=== PATIENT | female | born 1945 | race Caucasian/White ===

== ENCOUNTER 2020-05-13 19:26 | Inpatient (IN) ==
[2020-05-13] MEDS ORDERED: IOPAMIDOL 100 ML BOTTLE IV ONE (19:27)
[2020-05-13] MEDS ORDERED: ACETAMINOPHEN 325 MG TABLET PO ONE (19:50)
[2020-05-13] MEDS ORDERED: 0.9 % SODIUM CHLORIDE 1,000 ML IV ONE ×2 (19:50→22:35)
--- NOTE | 2020-05-13 20:10 | Emergency Department Note ---
Eye Problem HPI General Chief complaint: Eye Problems Stated complaint: eye Time Seen by Provider: 05/13/20 19:29 Source: patient Mode of arrival: ambulatory Limitations: no limitations History of Present Illness HPI Narrative: Narrative: 74-year-old female patient presents emergency department with chief complaint of worsening swelling, redness, and drainage from her left eye x2-3 days. Patient admits to a recent history of left eye infection. She was evaluated by an head of store operations and [place] who started her on antibiotics. I do not have that note to review. Nor does she recall what the antibiotic was. She mentions that her eyes been swollen shut over the last 2-3 days. She was evaluated in [facility] in [place] and was diagnosed with some form of URI 2 days ago (05/03). A review of the clinical note does not show any history of eye issues or problems. Physical exam does not show any eye exam being performed. She does have a pending COVID test. She tells me that she should have the results by tomorrow. Left eye is completely swollen shut but she is able to see light through the lids. It appears at this eye condition has markedly worsened within 2 days. Patient is anticoagulated on Coumadin. She is unsure what her last INR was. Patient is febrile in triage at 102. She admits to fever at home. She denies any cough, sinus congestion, runny nose. ROS: Denies shortness of breath. Denies retrosternal chest pain or palpitations. Denies abdominal pain, nausea, vomiting, or diarrhea. Denies dysuria, hematuria, urinary frequency, or urinary urgency. Denies generalized or focal weakness. Related Data Home Medications Medication Instructions Recorded Confirmed aspirin [Adult Low Dose Aspirin EC] 81 mg PO DAILY 11/27/16 11/27/16 carvedilol [Coreg] 3.125 mg PO BID 11/27/16 11/27/16 digoxin 125 mcg PO DAILY 11/27/16 11/27/16 furosemide 20 mg PO DAILY 11/27/16 11/27/16 lisinopril 5 mg PO DAILY 11/27/16 11/27/16 metformin [Fortamet] 500 mg PO BID 11/27/16 11/27/16 potassium chloride [Klor-Con 40 meq PO DAILY 11/27/16 11/27/16 Sprinkle] Entresto 24 - 26 mg PO BID 05/13/20 05/13/20 allopurinol 100 mg PO QDAY 05/13/20 05/13/20 glimepiride 2 mg PO QDAY 05/13/20 05/13/20 warfarin 7.5 mg PO QDAY 05/13/20 05/13/20 Previous Rx's Medication Instructions Recorded acetaminophen-codeine 1 tab PO Q6HP PRN #10 tab 11/27/16 Allergies Allergy/AdvReac Type Severity Reaction Status Date / Time rosuvastatin [From Crestor] AdvReac Intermediate Palpitation Verified 11/27/16 17:41 s atorvastatin [From Lipitor] AdvReac Unknown Unknown Verified 05/13/20 22:28 Review of Systems ROS ROS Narrative: Narrative: All systems ED: reviewed and negative except as stated. [facility] Narrative Patient History Narrative: Narrative: Medical/Surgical/Family History All Active Problems (Updated 05/13/20 @ 22:26 by Lorne Ch PA-C) Sepsis (Acute) Periorbital cellulitis (Acute) Current use of termite treater helper anticoagulation (Acute) Phlebitis (Acute) Phlebitis (Acute) Medical History (Updated 05/13/20 @ 22:26 by Lorne Ch PA-C) Current use of snf anticoagulation (Acute) Phlebitis (Acute) Phlebitis (Acute) Surgical History (Updated 05/13/20 @ 20:01 by Lorne Ch PA-C) Aortic valve replaced (Acute) Social History Smoking Status: Never smoker Exam Narrative Narrative: Narrative: General Limitations: no limitations General appearance: Present other (Well-developed, well-nourished, obese, and acutely ill-appearing 74-year-old female patient laying supine on the emergency room [place]. No acute respiratory distress. Patient is normotensive blood pressure 133/53. Heart rate is 84. Temperature is 102.0. SPO2 90% on room air.) Head Head: Absent normocephalic Expanded Head Head physical: Present other (Entire area around left eye is erythematous, and swollen shut.) Expanded Eye Eyelids: left: erythema and swelling eyelids (Left eye is completely swollen shut. There is serosanguineous drainage coming from underneath the eyelid. An attempt was made to open them slightly in order to visualize the pupil. Unfortunate this was unsuccessful. Area is tender to palpation.) Pupils: Right: regular, round (Unable to visualize left due to swelling.) and reactive (Unable to visualize left eye due to swelling.) Sclera/Conjunctival: left: hemorrhage (Left eye has serosanguineous drainage noted), exudate (There is some apparent purulent drainage also noted.) and tenderness and right: normal inspection Visual acuity (L) = 20/: 0 With correction: No ENT ENT: Present normal oropharynx and mucous membranes moist Neck Neck: Present trachea midline; Absent meningismus, lymphadenopathy and thyromegaly Chest Chest: Present symmetric chest wall rise Respiratory Respiratory: Present normal lung sounds bilaterally; Absent respiratory distress, wheezes, stridor, accessory muscle use and prolonged expiratory phase Cardiovascular Cardiovascular: Present regular rate and normal rhythm; Absent systolic murmur and diastolic murmur Adbominal Abdominal: Present soft; Absent distention, tenderness, guarding, rebound, rigidity, organomegaly and mass Extremities Extremities: Present normal inspection, full ROM and normal capillary refill Neurological Neurological: Present alert and oriented X3 Psychiatric Psychiatric: Present normal affect and normal mood Skin Skin: Present hot, dry and normal color Course Course Course Narrative: Patient does have a history of left eye infection. She has been treated recently with oral antibiotics by a head of store operations. However, patient has considerable periorbital cellulitis with a completely swollen shut upper and lower eyelid. This has both serosanguineous as well as purulent drainage noted. Patient is currently anticoagulated on Coumadin and there is some bruising noted to the upper eyelid. I am going to order a facial CT with contrast. I will also order screening laboratory studies including PT/INR. Reevaluation(s) Reevaluation #1: A review the patient's diagnostics thus far show the following: CBC WBC 23.5, RBC 3.53, hemoglobin 11.0, hematocrit 33.9, platelets 124. Lactic acid 2.0. Procalcitonin 13.09. CMP still pending. Results of the facial CT scan are also pending. Patient is febrile with an elevated WBC count. She does meet SIRS criteria. She has known suspected source of infection around her left eye and an elevated lactic acid level. This meets sepsis criteria. Patient was started on vancomycin 1500 mg IV in conjunction with Rocephin 2 g IV. It is now shift change and I have given full patient report to my collaborating physician (Dr. Squires) who has now assumed patient care. All further treatment decisions, modalities, and ultimate patient disposition will be carried out by my collaborating physician. Time: 22:24 Vital Signs Vital signs: Vital Signs Temperature 102.0 F H 05/13/20 19:26 Pulse Rate 84 05/13/20 19:26 Respiratory Rate 17 05/13/20 19:26 Blood Pressure 133/53 05/13/20 19:26 Pulse Oximetry (%) 90 05/13/20 19:26 Temperature 102.0 F H 05/13/20 19:26 Pulse Rate 84 05/13/20 19:26 Respiratory Rate 17 05/13/20 19:26 Blood Pressure 133/53 05/13/20 19:26 Pulse Oximetry (%) 90 05/13/20 19:26 MDM MDM Narrative Medical decision making narrative: Narrative: Discharge Plan Patient/Caregiver Discharge Instructions Pt seen by TOWER ERECTOR HELPER/PA only: No Clinical Impression: Sepsis Qualifiers: Sepsis type: sepsis due to unspecified organism Sepsis acute organ dysfunction status: without acute organ dysfunction Qualified Code(s): A41.9 - Sepsis, unspecified organism Periorbital cellulitis Qualifiers: Laterality: left Qualified Code(s): L03.213 - Periorbital cellulitis Patient Disposition: Still a Patient Condition: Serious Follow up with: Jameson Castanon PA-C [Primary Care Provider] - Prescriptions: No Action potassium chloride [Klor-Con Sprinkle] 10 MEQ Capsule.Er 40 meq PO DAILY RF: 0 aspirin [Adult Low Dose Aspirin] 81 MG tablet,delayed release (DR/EC) 81 mg PO DAILY RF: 0 carvedilol [Coreg] 3.125 MG tablet 25 mg PO BID RF: 0 lisinopril 5 MG Tablet 5 mg PO DAILY RF: 0 furosemide 20 MG tablet 40 mg PO Q2D RF: 0 metformin [Fortamet] 500 MG tablet extended release 24hr 1,000 mg PO BID RF: 0 digoxin 125 MCG tablet 125 mcg PO DAILY RF: 0 acetaminophen-codeine 1 TAB Tablet 1 tab PO Q6HP PRN (Reason: Pain) Qty: 10 RF: 0 warfarin 7.5 mg Tablet 7.5 mg PO QDAY RF: 0 allopurinol 100 mg tablet 100 mg PO QDAY RF: 0 glimepiride 2 mg tablet 2 mg PO QDAY RF: 0 Entresto 24 - 26 mg PO BID RF: 0
[2020-05-13] MEDS ORDERED: cefTRIAXone 2 GM in DEXTROSE 5% IN WATER 50 ML IV ONE (20:13)
[2020-05-13] MEDS ORDERED: VANCOMYCIN 1,500 MG in 0.9 % SODIUM CHLORIDE 500 ML IV ONE (20:13)
[2020-05-13 20:59] LABS: POC Creatinine 1.6 mg/dl (0.6-1.1)
[2020-05-13 21:18] LABS: Basophils # (Auto) 0.06 K/mcL (0.00-0.30); Basophils % (Auto) 0.3 % (0.0-2.0); Eosinophils # (Auto) 0.04 K/mcL (0.00-0.70); Eosinophils % (Auto) 0.2 % (0.0-7.0); Granulocytes % (Auto) 89.7 % (38.0-78.0); Hematocrit 33.9 % (34.1-44.9); Lymphocytes # (Auto) 0.97 K/mcL (1.50-4.80); Lymphocytes % (Auto) 4.1 % (15.5-49.0); Mean Corpuscular HGB Conc 32.4 g/dL (31.0-36.0); Mean Platelet Volume 10.9 fL (7.4-10.4); Monocytes # (Auto) 1.34 K/mcL (0.10-0.90); Monocytes % (Auto) 5.7 % (1.0-12.0); Platelet Count 124 K/mcL (140-440); RBC 3.53 M/mcL (3.59-5.38); Red Cell Distribution Width 13.7 % (11.5-14.5); WBC 23.5 K/mcL (4.50-11.00)
[2020-05-13 22:16] LABS: ALT/SGPT 9 U/l (0-40); AST/SGOT 13 U/l (0-37); Albumin 3.5 gm/dL (3.2-5.2); Albumin/Globulin Ratio 1.1 (1.0-2.3); Alkaline Phosphatase 66 U/L (39-117); Bilirubin,Total 0.9 mg/dL (0.0-1.0); Blood Urea Nitrogen 25 mg/dl (8-23); Calcium 8.9 mg/dl (8.6-10.4); Carbon Dioxide 24 mmol/L (22-30); Chloride 97 mmol/L (96-108); Globulin 3.3 gm/dL (2.2-3.7); Glomerular Filtration Rate 27; Glucose 246 mg/dL (70-105)
[2020-05-13 23:03] LABS: INR 3.1 (0.9-1.1); Prothrombin Time 32.5 sec (11.9-14.5)
--- NOTE | 2020-05-13 23:34 | Emergency Department Note ---
Eye Problem HPI General Chief complaint: Eye Problems Stated complaint: eye Time Seen by Provider: 05/13/20 19:29 Source: patient Mode of arrival: ambulatory Limitations: no limitations History of Present Illness HPI Narrative: Narrative: I took over care of this patient at 10 PM. She has a significant periorbital cellulitis with signs of early sepsis. Related Data Home Medications Medication Instructions Recorded Confirmed aspirin [Adult Low Dose Aspirin EC] 81 mg PO DAILY 11/27/16 05/13/20 carvedilol [Coreg] 25 mg PO BID 11/27/16 05/13/20 digoxin 125 mcg PO DAILY 11/27/16 05/13/20 furosemide 40 mg PO Q2D 11/27/16 05/13/20 metformin [Fortamet] 1,000 mg PO BID 11/27/16 05/13/20 Entresto 24 - 26 mg PO BID 05/13/20 05/13/20 allopurinol 100 mg PO QDAY 05/13/20 05/13/20 glimepiride 2 mg PO QDAY 05/13/20 05/13/20 warfarin 7.5 mg PO QDAY 05/13/20 05/13/20 Previous Rx's Medication Instructions Recorded acetaminophen-codeine 1 tab PO Q6HP PRN #10 tab 11/27/16 Allergies Allergy/AdvReac Type Severity Reaction Status Date / Time rosuvastatin [From Crestor] AdvReac Intermediate Palpitation Verified 11/27/16 17:41 s atorvastatin [From Lipitor] AdvReac Unknown Unknown Verified 05/13/20 22:28 Review of Systems ROS ROS Narrative: Narrative: [facility] Narrative Patient History Narrative: Narrative: Medical/Surgical/Family History All Active Problems Sepsis (Acute) Periorbital cellulitis (Acute) Current use of residential anticoagulation (Acute) Phlebitis (Acute) Phlebitis (Acute) Medical History Current use of extermination supervisor anticoagulation (Acute) Phlebitis (Acute) Phlebitis (Acute) Surgical History Aortic valve replaced (Acute) Social History Smoking Status: Never smoker Exam Narrative Narrative: Narrative: General Limitations: no limitations Expanded Eye Visual acuity (L) = 20/: 0 With correction: No Course Vital Signs Vital signs: Vital Signs Temperature 102.0 F H 05/13/20 19:26 Pulse Rate 84 05/13/20 19:26 Respiratory Rate 17 05/13/20 19:26 Blood Pressure 133/53 05/13/20 19:26 Pulse Oximetry (%) 90 05/13/20 19:26 Temperature 99.1 F H 05/14/20 05:31 Pulse Rate 78 05/14/20 06:08 Respiratory Rate 26 H 05/14/20 06:08 Blood Pressure 103/55 05/14/20 06:01 Pulse Oximetry (%) 94 05/14/20 06:08 MDM MDM Narrative Medical decision making narrative: Narrative: This patient's blood pressure trended down and so she did get fluid. Her lactic acid was 2.1 her white count was 23,000 and she had a fever. Blood cultures were obtained. I discussed the case with the hospitalist and the paint stock clerk Dr. Edvin Michael and the patient will be admitted to the hospital. She is gotten vancomycin and Rocephin so far. Dr. Michael felt that he could see the patient in the morning. Lab Data Lab results reviewed: Yes I reviewed the patient's lab results. Result diagrams: 05/14/20 04:55 05/13/20 20:14 Labs: Lab Results 05/13/20 05/13/20 05/13/20 Range/Units 20:13 20:14 20:14 WBC 23.5 H (4.50-11.00) K/mcL RBC 3.53 L (3.59-5.38) M/mcL Hgb 11.0 L (11.2-15.7) g/dL Hct 33.9 L (34.1-44.9) % MCV 96.0 (80.0-100.0) fL MCH 31.2 (26.0-34.0) pg MCHC 32.4 (31.0-36.0) g/dL RDW 13.7 (11.5-14.5) % Plt Count 124 L (140-440) K/mcL MPV 10.9 H (7.4-10.4) fL Gran % 89.7 H (38.0-78.0) % Lymph % (Auto) 4.1 L (15.5-49.0) % [place] % (Auto) 5.7 (1.0-12.0) % Eos % (Auto) 0.2 (0.0-7.0) % Baso % (Auto) 0.3 (0.0-2.0) % Gran # 21.09 H (1.80-8.00) K/mcL Lymph # (Auto) 0.97 L (1.50-4.80) K/mcL [place] # (Auto) 1.34 H (0.10-0.90) K/mcL Eos # (Auto) 0.04 (0.00-0.70) K/mcL Baso # (Auto) 0.06 (0.00-0.30) K/mcL PT (11.9-14.5) sec INR (0.9-1.1) VBG Lactic Acid (0.5-2.0) mmol/L Sodium 133 (133-145) mmol/L Potassium 4.4 (3.3-5.1) mmol/L Chloride 97 (96-108) mmol/L Carbon Dioxide 24 (22-30) mmol/L Anion Gap 12.0 (8-16) BUN 25 H (8-23) mg/dl Creatinine 1.8 H (0.6-1.1) mg/dl POC Creatinine 1.6 H (0.6-1.1) mg/dl GFR Calculation 27 Glucose 246 H (70-105) mg/dL Calcium 8.9 (8.6-10.4) mg/dl Total Bilirubin 0.9 (0.0-1.0) mg/dL AST 13 (0-37) U/l ALT 9 (0-40) U/l Alkaline Phosphatase 66 (39-117) U/L NT-Pro-B Natriuret Pep 67856.0 H (0-450) pg/ml Total Protein 6.8 (5.9-8.4) gm/dL Albumin 3.5 (3.2-5.2) gm/dL Globulin 3.3 (2.2-3.7) gm/dL Albumin/Globulin Ratio 1.1 (1.0-2.3) Procalcitonin (<0.10) ng/mL 09/30/20 09/30/20 09/30/20 Range/Units 20:14 20:14 20:31 WBC (4.50-11.00) K/mcL RBC (3.59-5.38) M/mcL Hgb (11.2-15.7) g/dL Hct (34.1-44.9) % MCV (80.0-100.0) fL MCH (26.0-34.0) pg MCHC (31.0-36.0) g/dL RDW (11.5-14.5) % Plt Count (140-440) K/mcL MPV (7.4-10.4) fL Gran % (38.0-78.0) % Lymph % (Auto) (15.5-49.0) % [place] % (Auto) (1.0-12.0) % Eos % (Auto) (0.0-7.0) % Baso % (Auto) (0.0-2.0) % Gran # (1.80-8.00) K/mcL Lymph # (Auto) (1.50-4.80) K/mcL [place] # (Auto) (0.10-0.90) K/mcL Eos # (Auto) (0.00-0.70) K/mcL Baso # (Auto) (0.00-0.30) K/mcL PT 32.5 H (11.9-14.5) sec INR 3.1 H (0.9-1.1) VBG Lactic Acid 2.1 H (0.5-2.0) mmol/L Sodium (133-145) mmol/L Potassium (3.3-5.1) mmol/L Chloride (96-108) mmol/L Carbon Dioxide (22-30) mmol/L Anion Gap (8-16) BUN (8-23) mg/dl Creatinine (0.6-1.1) mg/dl POC Creatinine (0.6-1.1) mg/dl GFR Calculation Glucose (70-105) mg/dL Calcium (8.6-10.4) mg/dl Total Bilirubin (0.0-1.0) mg/dL AST (0-37) U/l ALT (0-40) U/l Alkaline Phosphatase (39-117) U/L NT-Pro-B Natriuret Pep (0-450) pg/ml Total Protein (5.9-8.4) gm/dL Albumin (3.2-5.2) gm/dL Globulin (2.2-3.7) gm/dL Albumin/Globulin Ratio (1.0-2.3) Procalcitonin 13.09 H (<0.10) ng/mL Radiology Data Radiology results reviewed: Yes I reviewed the patient's radiology results. Radiology results narrative: Periorbital cellulitis without evidence of orbital abscess. Discharge Plan Patient/Caregiver Discharge Instructions Pt seen by RADIO ELECTRONICS TECHNICIAN/PA only: No Clinical Impression: Sepsis Qualifiers: Sepsis type: sepsis due to unspecified organism Sepsis acute organ dysfunction status: without acute organ dysfunction Qualified Code(s): A41.9 - Sepsis, unspecified organism Periorbital cellulitis Qualifiers: Laterality: left Qualified Code(s): L03.213 - Periorbital cellulitis Patient Disposition: Xfer As Inpt ([facility]) Condition: Serious Discharge Date/Time: 05/14/20 00:41
[2020-05-14] MEDS ORDERED: ACETAMINOPHEN 325 MG TABLET PO PRN ×2 (00:08→00:54)
[2020-05-14] MEDS ORDERED: morphine 2 MG/ML VIAL IV PRN ×2 (00:08→00:54)
[2020-05-14] MEDS ORDERED: ONDANSETRON 4 MG/2 ML VIAL IV PRN ×2 (00:08→00:54)
[2020-05-14] MEDS ORDERED: 0.9 % SODIUM CHLORIDE 1,000 ML IV SCH (00:15)
[2020-05-14] MEDS ORDERED: PIPERACILLIN SODIUM/TAZOBACTAM 2.25 GM in DEXTROSE 5% IN WATER 50 ML IV SCH (00:15)
[2020-05-14] MEDS ORDERED: DEXTROSE 50% 50 ML VIAL IV PRN ×2 (00:20→00:54)
[2020-05-14] MEDS ORDERED: DEXTROSE 31 GM ORAL.SUSP PO PRN ×2 (00:20→00:54)
[2020-05-14] MEDS ORDERED: traMADol 50 MG TABLET PO PRN ×2 (00:20→00:54)
[2020-05-14] MEDS ORDERED: VANCOMYCIN PER PHARMACY IV ONE ×2 (00:20→00:54)
[2020-05-14] MEDS ORDERED: CIPROFLOXACIN 0.3% OPHTH DROPS BOTTLE OS SCH ×2 (00:30→06:00)
--- NOTE | 2020-05-14 00:51 | Internal Med History&Physical ---
HPI History of Present Illness Patient information: Note initiated : 05/14/20 at 12:27 am Service Date, if different from initiated Date: [] Patient: Latoya Katz a 74 y/o F admitted on for eye. Chief Complaint: [] History of present illness: Ms. Katz is a 74 year old F with a past medical history of diabetes type 2 and mitral valve replacement with metallic valve on long-term anticoagulation who presented to the ER due to left eye swelling and redness for 2 days. Patient states that her left eye started redness, swelling and pain 2 days ago which has been worsening. She denied any injury to left eye. She was seen by an emotional support teacher in [place] who started her on antibiotics. He also complains of sore throat for 2 days. She had a COVID-19 test, the results pending. She had a metallic mitral valve replacement for which she has been on long-term anticoagulation with warfarin. As per ER physician Dr. Pike, CT of face with contrast did not show abscess. 1 dose of ceftriaxone and vancomycin were given in the ER. When I saw this patient in the ER, other than the symptoms mentioned above, patient denied headache, dizziness, nausea, vomiting, chest pain, shortness of breath, abdominal pain, or dysuria. I was called by Dr. pike to admit the pt. Both dry house wheeler and I were concerned about her left eye. There is no emotional support teacher equipment installation professional available [facility]. Before I accepted the pt, I suggested Dr. Pike to consult with emotional support teacher to see if pt needs to be emergently seen tonight. If so, we can not admit the pt to our hospital. As per Dr. Pike, he spoke to ophthalmology Dr. Michael who will see pt tomorrow. So I accepted the pt. Review of Systems All systems: reviewed and no additional remarkable complaints except as stated PFSH PFSH All Active Problems Sepsis (Acute) Periorbital cellulitis (Acute) Current use of parts counterman anticoagulation (Acute) Phlebitis (Acute) Phlebitis (Acute) Medical History Current use of parts counterman anticoagulation (Acute) Phlebitis (Acute) Phlebitis (Acute) Surgical History Aortic valve replaced (Acute) Social History smoking status: Never smoker MEDS/ALLERGIES Home Medications and Allergies Home Medications Medication Instructions Recorded Confirmed Type acetaminophen-codeine 1 tab PO Q6HP PRN #10 tab 11/27/16 05/13/20 Rx aspirin [Adult Low Dose Aspirin EC] 81 mg PO DAILY 11/27/16 05/13/20 History carvedilol [Coreg] 25 mg PO BID 11/27/16 05/13/20 History digoxin 125 mcg PO DAILY 11/27/16 05/13/20 History furosemide 40 mg PO Q2D 11/27/16 05/13/20 History metformin [Fortamet] 1,000 mg PO BID 11/27/16 05/13/20 History Entresto 24 - 26 mg PO BID 05/13/20 05/13/20 History allopurinol 100 mg PO QDAY 05/13/20 05/13/20 History glimepiride 2 mg PO QDAY 05/13/20 05/13/20 History warfarin 7.5 mg PO QDAY 05/13/20 05/13/20 History Allergies Allergy/AdvReac Type Severity Reaction Status Date / Time rosuvastatin [From Crestor] AdvReac Intermediate Palpitation Verified 11/27/16 17:41 s atorvastatin [From Lipitor] AdvReac Unknown Unknown Verified 05/13/20 22:28 EXAM Constitutional Vitals: Temp Pulse Resp BP Pulse Ox 100.6 F H 87 20 116/62 95 05/13/20 23:21 05/13/20 23:57 05/13/20 23:25 05/14/20 00:01 05/13/20 23:57 Additional findings Additional findings: General - No acute distress Eyes - left eyelids erythema and swelling, completely swollen shut. There is purulent serosanguineous drainage coming from underneath the eyelid. Left eye ball can not be seen due to pain when I tried to open the eyelids. ENT no rhinorrhea, no noticeable or palpable swelling, no redness or rash around throat or on face Neck supple, no JVD, no thyromegaly Respiratory: Lungs -clear, no wheezing or crackles. Cardiovascular - RRR no m/r/g, GI - Normal bowel sounds, no distended, soft. Extremeties - No edema, cyanosis or clubbing Hemo/lymphatic/immune no lymphadenopathy Neurological Alert and oriented x 3, no focal neurological deficits. Psychiatry flat affect DATA Data Completed and Pending Labs: Labs from last 24 hours 05/13/20 05/13/20 05/13/20 20:31 20:14 20:14 WBC RBC Hgb Hct MCV MCH MCHC RDW Plt Count MPV Gran % Lymph % (Auto) [place] % (Auto) Eos % (Auto) Baso % (Auto) Gran # Lymph # (Auto) [place] # (Auto) Eos # (Auto) Baso # (Auto) PT 32.5 H INR 3.1 H VBG Lactic Acid 2.1 H Sodium Potassium Chloride Carbon Dioxide Anion Gap BUN Creatinine POC Creatinine GFR Calculation Glucose Calcium Total Bilirubin AST ALT Alkaline Phosphatase NT-Pro-B Natriuret Pep Total Protein Albumin Globulin Albumin/Globulin Ratio Procalcitonin 13.09 H 05/13/20 05/13/20 05/13/20 20:14 20:14 20:13 WBC 23.5 H RBC 3.53 L Hgb 11.0 L Hct 33.9 L MCV 96.0 MCH 31.2 MCHC 32.4 RDW 13.7 Plt Count 124 L MPV 10.9 H Gran % 89.7 H Lymph % (Auto) 4.1 L [place] % (Auto) 5.7 Eos % (Auto) 0.2 Baso % (Auto) 0.3 Gran # 21.09 H Lymph # (Auto) 0.97 L [place] # (Auto) 1.34 H Eos # (Auto) 0.04 Baso # (Auto) 0.06 PT INR VBG Lactic Acid Sodium 133 Potassium 4.4 Chloride 97 Carbon Dioxide 24 Anion Gap 12.0 BUN 25 H Creatinine 1.8 H POC Creatinine 1.6 H GFR Calculation 27 Glucose 246 H Calcium 8.9 Total Bilirubin 0.9 AST 13 ALT 9 Alkaline Phosphatase 66 NT-Pro-B Natriuret Pep Pending Total Protein 6.8 Albumin 3.5 Globulin 3.3 Albumin/Globulin Ratio 1.1 Procalcitonin A/P Narrative A/P Narrative: 1. Sepsis 2nd to periorbital cellulitis Lactic acid 2.1 Procalcitonin 13.09 2 L normal saline was given in the ER Continue IV fluid Carvedilol 25 mg twice daily, entresto 24-26 BID, and lasix 40mg Q2D are on hold due to BP 110+. 2. Acute periorbital cellulitis As per ER physician Dr. Pike, CT of face - no abscess. No headache or neurological deficits MRSA screen Covid 19 pending Zosyn and vancomycin (dosing by pharmacy) Cipro eyedrops Job Analyst Dr. Michael consult 3. Mitral valve replacement with metalic valve on parts counterman anticoagulation Continue warfarin, dosing by pharmacy 4. DM type 2 Diabetic diet Glimepiride 2 mg daily and Metformin are on hold Insulin sliding scales 5. Thrombocytopenia Repeat CBC in morning 6. ENEDINA or CKD Unknown chronicity IV fluid Avoid nephrotoxic meds Repeat renal function in morning 7. DVT prophylaxis: Warfarin 8. CODE STATUS: Patient has not made a decision yet. Time Spent With Patient Time: Total time spent is greater than 50% in coordination of care (as documented) at patient's floor/unit and/or counseling patient:
[2020-05-14] MEDS ORDERED: IOPAMIDOL 100 ML BOTTLE IV ONE (00:54)
[2020-05-14] MEDS: 0.9 % SODIUM CHLORIDE 1,000 ML IV SCH ×3 (01:18→12:57)
[2020-05-14] MEDS: PIPERACILLIN SODIUM/TAZOBACTAM 2.25 GM in DEXTROSE 5% IN WATER 50 ML IV SCH ×3 (01:19→14:01)
--- NOTE | 2020-05-14 01:39 | XRay Report ---
CLINICAL INFORMATION: SOB COMPARISON: None. FINDINGS: The heart is moderately enlarged. Mediastinum is unremarkable. Pulmonary vessels are mildly distended is mild peribronchial vascular edema. Minor airspace disease in the right base could indicate developing infiltrate. There is a wire fragment overlying the central heart. Tach location is uncertain given is only single view. IMPRESSION: Mild CHF. Developing infiltrate right base. 4 cm attached wire fragment overlying the central heart. Suspect this is merely a fractured sternotomy wire. Suggest two-view upright chest x-ray, following diuretic trial, for localization Interpreted and Authenticated by: Cliff Liu 05/14/20
--- NOTE | 2020-05-14 03:18 | Cat Scan Report ---
CLINICAL INFORMATION: Left orbital cellulitis - evaluate COMPARISON: None. TECHNIQUE: 80 cc of Isovue-370 were injected intravenously and one minute later, 0.625 mm axial slices were obtained through the facial region. Following reconstruction, 2.5 millimeter, axial, sagittal and coronal reformations were obtained and reviewed in bone and soft tissue windows.The exam was performed using radiation dose optimization techniques including, but not limited to, automated exposure control, adjustment of the mA and/or kV according to patient size and use of iterative reconstruction technique. FINDINGS: Marked left orbital cellulitis is entirely confined to the preseptal space. There is no evidence of post septal involvement. The left ocular globe, intra and extraconal fat, extraocular muscles and optic nerve are all unremarkable. The right orbit is entirely unremarkable. There is moderate mucosal thickening in all ethmoid and right sphenoid air cells. Small air-fluid level seen in the left maxillary sinus. Right maxillary and frontal sinuses are clear. There is heavy calcification in the alar cartilage region - likely stigmata of old trauma or inflammation. Dentures are in place with moderate alveolar erosions in both maxillary and mandibular regions. No other osseous abnormality. Multiple moderately enlarged upper deep cervical lymph nodes are almost certainly benign reactive lymph nodes. The submandibular and parotid glands are unremarkable. At C5-6 and C6-7, moderate broad disc spur complexes result in moderate central canal and bilateral lateral recess/ IV foraminal narrowing. There is possible impingement of the exiting C6-C7 nerve roots. IMPRESSION: 1. Marked left orbital cellulitis entirely confined to the preseptal space. 2. Bilateral ethmoid, right sphenoid and left maxillary sinusitis. 3. Heavy calcification of the alar cartilages in the nasal region. This is likely stigmata of remote trauma or inflammation. 4. Enlarged upper deep cervical lymph nodes almost certainly benign reactive adenopathy related to cellulitis. 5. C5-6 and C6-7: moderate broad disc spur complexes resulting in moderate central canal and IV foraminal narrowing possibly impinging exiting C6-C7 nerve roots - please correlate with upper extremity radiculopathy. Interpreted and Authenticated by: Cliff Liu 05/14/20
[2020-05-14] MEDS: 0.9 % SODIUM CHLORIDE 10 ML SYRINGE IV SCH ×2 (05:33→14:01)
[2020-05-14] MEDS ORDERED: 0.9 % SODIUM CHLORIDE 10 ML SYRINGE IV SCH (06:00)
[2020-05-14] MEDS ORDERED: VANCOMYCIN PER PHARMACY IV SCH (06:15)
[2020-05-14 06:45] LABS: Basophils # (Auto) 0.04 K/mcL (0.00-0.30); Basophils % (Auto) 0.2 % (0.0-2.0); Eosinophils # (Auto) 0.02 K/mcL (0.00-0.70); Eosinophils % (Auto) 0.1 % (0.0-7.0); Granulocytes % (Auto) 89.1 % (38.0-78.0); Hematocrit 31.8 % (34.1-44.9); Lymphocytes % (Auto) 4.5 % (15.5-49.0); Mean Cell Volume 101.3 fL (80.0-100.0); Mean Corpuscular HGB Conc 31.4 g/dL (31.0-36.0); Mean Platelet Volume 11.1 fL (7.4-10.4); Monocytes # (Auto) 1.08 K/mcL (0.10-0.90); Monocytes % (Auto) 6.1 % (1.0-12.0); Platelet Count 101 K/mcL (140-440); RBC 3.14 M/mcL (3.59-5.38); Red Cell Distribution Width 13.7 % (11.5-14.5); WBC 17.8 K/mcL (4.50-11.00)
[2020-05-14 07:06] LABS: ALT/SGPT 8 U/l (0-40); AST/SGOT 17 U/l (0-37); Albumin 2.6 gm/dL (3.2-5.2); Albumin/Globulin Ratio 0.8 (1.0-2.3); Alkaline Phosphatase 70 U/L (39-117); Bilirubin,Total 0.5 mg/dL (0.0-1.0); Blood Urea Nitrogen 30 mg/dl (8-23); Calcium 8.1 mg/dl (8.6-10.4); Carbon Dioxide 18 mmol/L (22-30); Chloride 106 mmol/L (96-108); Globulin 3.3 gm/dL (2.2-3.7); Glomerular Filtration Rate 31; Glucose 155 mg/dL (70-105)
[2020-05-14 07:26] LABS: INR 4.4 (0.9-1.1); Prothrombin Time 42.6 sec (11.9-14.5)
[2020-05-14] MEDS ORDERED: INSULIN LISPRO 1 UNIT/0.01 ML UNIT SQ SCH (07:30)
[2020-05-14 07:36] LABS: Digoxin 0.6 ng/mL
[2020-05-14] MEDS: INSULIN LISPRO 1 UNIT/0.01 ML UNIT SQ SCH ×2 (07:53→12:59)
[2020-05-14 08:27] LABS: Estimated Average Glucose(eAG) 146 mg/dL; Hemoglobin A1C 6.7 % HGB (4.0-6.0)
[2020-05-14] MEDS ORDERED: NON FORMULARY MEDICATION 1 DOSE MISCELL (Aspirin [Adult Low Dose Aspirin] 81 MG) PO SCH (09:00)
[2020-05-14] MEDS ORDERED: ASPIRIN 81 MG TAB.CHEW PO SCH (09:00)
[2020-05-14] MEDS ORDERED: DIGOXIN 125 MCG TABLET PO SCH ×2 (09:00→14:00)
[2020-05-14] MEDS ORDERED: VANCOMYCIN 1,500 MG in 0.9 % SODIUM CHLORIDE 500 ML IV SCH (09:00)
[2020-05-14] MEDS ORDERED: DOCUSATE SODIUM 100 MG CAPSULE PO SCH ×2 (09:00)
[2020-05-14] MEDS ORDERED: WARFARIN 7.5 MG TABLET PO SCH ×2 (09:00)
[2020-05-14 13:28] LABS: Phosphorous 2.8 mg/dL (2.7-4.5)
--- NOTE | 2020-05-14 15:18 | Discharge Summary ---
Discharge Provider Provider Patient information: Note initiated : 05/14/20 at 3:16 pm Service Date, if different from initiated Date: [] Patient: Latoya Katz 74 y/o F admitted on 05/14/20 for eye. Chief Complaint: [] Date of admission: 05/14/20 00:37 Discharge date: 05/14/20 Primary care physician: Jameson Castanon Consults: 05/13/20 23:19 Consult to Physician [CONS] Stat Comment: Consulting Provider: Nelson Rosales Reason For Exam: Physician to Consult 05/13/20 23:35 Consult to Physician [CONS] Stat Comment: Consulting Provider: Edvin Michael Reason For Exam: Physician to Consult 05/14/20 Consult to Physician [CONS] Stat Comment: Consulting Provider: Edvin Michael Reason For Exam: Physician to Consult Discharge Meds Discharge Medications Home Medications acetaminophen-codeine 1 tab PO Q6HP PRN #10 tab 11/27/16 [Rx Confirmed 05/13/20 Last Taken Unknown] aspirin [Adult Low Dose Aspirin EC] 81 mg PO DAILY 11/27/16 [History Confirmed 05/13/20 Last Taken Unknown] carvedilol [Coreg] 25 mg PO BID 11/27/16 [History Confirmed 05/13/20 Last Taken Unknown] digoxin 125 mcg PO DAILY 11/27/16 [History Confirmed 05/13/20 Last Taken Unknown] furosemide 40 mg PO Q2D 11/27/16 [History Confirmed 05/13/20 Last Taken Unknown] metformin [Fortamet] 1,000 mg PO BID 11/27/16 [History Confirmed 05/13/20 Last Taken Unknown] Entresto 24 - 26 mg PO BID 05/13/20 [History Confirmed 05/13/20 Last Taken Un known] allopurinol 100 mg PO QDAY 05/13/20 [History Confirmed 05/13/20 Last Taken Unknown] glimepiride 2 mg PO QDAY 05/13/20 [History Confirmed 05/13/20 Last Taken Unknown] warfarin 7.5 mg PO QDAY 05/13/20 [History Confirmed 05/13/20 Last Taken Unknown] COURSE Hospital Course Hospital course: By problems: 1. Sepsis 2nd to periorbital cellulitis resolved. Carvedilol 25 mg twice daily, entresto 24-26 BID, and lasix 40mg Q2D are on hold due to BP 110+. SBP is now around 120-130 2. Acute periorbital cellulitis CT of face - "Marked left orbital cellulitis entirely confined to the preseptal space. Bilateral ethmoid, right sphenoid and left maxillary sinusitis." No headache or neurological deficits MRSA screen -negative Covid 19 negative Respiratory panel negative Zosyn and vancomycin (dosing by pharmacy) Cipro eyedrops [employer] Dr. Augustin saw pt this morning, who felt her periorbital cellulitis could result from sinusitis. Her eyeballs are fine. Vanco and Zosyn are good for her. She does not need eyedrops. Blood culture came back showed -gram-positive cocci - COCCI IN PAIRS AND CHAINS BOTH BOTTLES. I discontinued vanc. 3. Mitral valve replacement with metalic valve on lobsterman anticoagulation Continue warfarin, dosing by pharmacy 4. DM type 2 Diabetic diet Glimepiride 2 mg daily and Metformin are on hold Insulin sliding scales 5. Thrombocytopenia Repeat CBC in morning 6. ENEDINA or CKD Unknown chronicity IV fluid Avoid nephrotoxic meds Repeat renal function in morning 7. Supratherapeutic INR INR 4.4 today No evidence of bleeding. Warfarin is on hold 8. Bacteremia - [facility] Echo was performed, report pending Repeat blood culture abx was adjusted 9. Cardiac arrhythmia This morning patient developed atrial flutter, LBBB, pause for 8 seconds. LBBB possibly showed on the EKG on 03/25/2019 troponin Mag 10. Systolic CHF BNP 73550 Nuclear stress test was performed April 2019 at [facility], EF - 34%. Did not suggest ischemia. Considering this factors - CHF with EF almost 30%, symptomatic pause, metallic valve with bacteremia, I spoke to rn mobile Dr. Joiner at [facility] who felt that pt needs to be transferred to his hospital for further work-up and treatment. I spoke to hospitalist at [facility] who accepted this patient. I discussed with the patient who agreed with the plan but refused helicopter. She would like to be transferred by ground. Discharge diagnosis: Periorbital cellulitis, cardiac arrhythmia, bacteremia Time Spent with Patient Time attestation: Total time spent providing and/or coordinating discharge services: EXAM Constitutional Vitals: Temp Pulse Resp BP Pulse Ox 100.4 F H 66 25 H 130/60 95 05/14/20 12:01 05/14/20 13:23 05/14/20 13:23 05/14/20 12:37 05/14/20 13:23 Additional findings Additional findings: General - No acute distress Eyes - left eyelids erythema and swelling, completely swollen shut. There is purulent serosanguineous drainage coming from underneath the eyelid. Left eye ball can not be seen due to pain when I tried to open the eyelids. mild erythema and swelling over cheeks and left eyelids. ENT no rhinorrhea Neck supple, no JVD, no thyromegaly Respiratory: Lungs -clear, no wheezing or crackles. Cardiovascular - RRR no m/r/g, GI - Normal bowel sounds, no distended, soft. Extremeties - No edema, cyanosis or clubbing Hemo/lymphatic/immune no lymphadenopathy Neurological Alert and oriented x 3, no focal neurological deficits. Psychiatry flat affect Discharge Data Data Completed and Pending Labs on day of discharge: Labs from last 24 hours 05/14/20 05/14/20 05/14/20 13:13 06:30 04:55 WBC RBC Hgb Hct MCV MCH MCHC RDW Plt Count MPV Gran % Lymph % (Auto) Geary % (Auto) Eos % (Auto) Baso % (Auto) Gran # Lymph # (Auto) Geary # (Auto) Eos # (Auto) Baso # (Auto) Differential Comment PT 42.6 H INR 4.4 H VBG Lactic Acid Sodium Potassium Chloride Carbon Dioxide Anion Gap BUN Creatinine POC Creatinine GFR Calculation Glucose Hemoglobin A1c Estim Average Glucose Calcium Phosphorus 2.8 Magnesium 2.4 Total Bilirubin AST ALT Alkaline Phosphatase Troponin T < 0.01 NT-Pro-B Natriuret Pep Total Protein Albumin Globulin Albumin/Globulin Ratio Procalcitonin Digoxin Digoxin Dose Digox Last Dose Time 05/14/20 05/14/20 05/14/20 04:55 04:55 04:55 WBC 17.8 H RBC 3.14 L Hgb 10.0 L Hct 31.8 L MCV 101.3 H MCH 31.8 MCHC 31.4 RDW 13.7 Plt Count 101 L MPV 11.1 H Gran % 89.1 H Lymph % (Auto) 4.5 L Geary % (Auto) 6.1 Eos % (Auto) 0.1 Baso % (Auto) 0.2 Gran # 15.89 H Lymph # (Auto) 0.80 L Geary # (Auto) 1.08 H Eos # (Auto) 0.02 Baso # (Auto) 0.04 Differential Comment Comment PT INR VBG Lactic Acid Sodium 134 Potassium 4.9 Chloride 106 Carbon Dioxide 18 L Anion Gap 10.0 BUN 30 H Creatinine 1.6 H POC Creatinine GFR Calculation 31 Glucose 155 H Hemoglobin A1c 6.7 H Estim Average Glucose 146 Calcium 8.1 L Phosphorus Magnesium Total Bilirubin 0.5 AST 17 ALT 8 Alkaline Phosphatase 70 Troponin T NT-Pro-B Natriuret Pep Total Protein 5.9 Albumin 2.6 L Globulin 3.3 Albumin/Globulin Ratio 0.8 L Procalcitonin Digoxin 0.6 Digoxin Dose Not Reportable Digox Last Dose Time Not Reportable 05/13/20 05/13/20 05/13/20 20:31 20:14 20:14 WBC RBC Hgb Hct MCV MCH MCHC RDW Plt Count MPV Gran % Lymph % (Auto) Geary % (Auto) Eos % (Auto) Baso % (Auto) Gran # Lymph # (Auto) Geary # (Auto) Eos # (Auto) Baso # (Auto) Differential Comment PT 32.5 H INR 3.1 H VBG Lactic Acid 2.1 H Sodium Potassium Chloride Carbon Dioxide Anion Gap BUN Creatinine POC Creatinine GFR Calculation Glucose Hemoglobin A1c Estim Average Glucose Calcium Phosphorus Magnesium Total Bilirubin AST ALT Alkaline Phosphatase Troponin T NT-Pro-B Natriuret Pep Total Protein Albumin Globulin Albumin/Globulin Ratio Procalcitonin 13.09 H Digoxin Digoxin Dose Digox Last Dose Time 05/13/20 05/13/20 05/13/20 20:14 20:14 20:13 WBC 23.5 H RBC 3.53 L Hgb 11.0 L Hct 33.9 L MCV 96.0 MCH 31.2 MCHC 32.4 RDW 13.7 Plt Count 124 L MPV 10.9 H Gran % 89.7 H Lymph % (Auto) 4.1 L Geary % (Auto) 5.7 Eos % (Auto) 0.2 Baso % (Auto) 0.3 Gran # 21.09 H Lymph # (Auto) 0.97 L Geary # (Auto) 1.34 H Eos # (Auto) 0.04 Baso # (Auto) 0.06 Differential Comment PT INR VBG Lactic Acid Sodium 133 Potassium 4.4 Chloride 97 Carbon Dioxide 24 Anion Gap 12.0 BUN 25 H Creatinine 1.8 H POC Creatinine 1.6 H GFR Calculation 27 Glucose 246 H Hemoglobin A1c Estim Average Glucose Calcium 8.9 Phosphorus Magnesium Total Bilirubin 0.9 AST 13 ALT 9 Alkaline Phosphatase 66 Troponin T NT-Pro-B Natriuret Pep 74468.0 H Total Protein 6.8 Albumin 3.5 Globulin 3.3 Albumin/Globulin Ratio 1.1 Procalcitonin Digoxin Digoxin Dose Digox Last Dose Time Preliminary micro results at discharge 05/13/20 20:45 Blood Culture - Preliminary Blood Gram positive cocci 05/13/20 20:44 Blood Culture - Preliminary Blood Gram positive cocci Discharge Plan Patient/Caregiver Discharge Instructions Stand Alone Forms: Work/Release Restrictions Prescriptions: No Action aspirin [Adult Low Dose Aspirin] 81 MG tablet,delayed release (DR/EC) 81 mg PO DAILY RF: 0 carvedilol [Coreg] 3.125 MG tablet 25 mg PO BID RF: 0 furosemide 20 MG tablet 40 mg PO Q2D RF: 0 metformin [Fortamet] 500 MG tablet extended release 24hr 1,000 mg PO BID RF: 0 digoxin 125 MCG tablet 125 mcg PO DAILY RF: 0 acetaminophen-codeine 1 TAB tablet 1 tab PO Q6HP PRN (Reason: Pain) Qty: 10 RF: 0 warfarin 7.5 mg Tablet 7.5 mg PO QDAY RF: 0 allopurinol 100 mg tablet 100 mg PO QDAY RF: 0 glimepiride 2 mg tablet 2 mg PO QDAY RF: 0 Entresto 24 - 26 mg PO BID RF: 0 Follow Up Plan Follow up with: Jameson Castanon PA-C [Primary Care Provider] - Corky Murrieta [Referring] - [facility]: Serious Discharge Orders: Discharge Order (Routine); Ordered 05/14/20 Ordered By: Nelson Rosales
== END 2020-05-14 16:45 | disposition short-term general hospital (02) | DRG 872 ==
LOC: ED 19:26 → ICU 05-14 00:37
PROVIDERS: ADMIT Internal Medicine; ATTEND Internal Medicine

== ENCOUNTER 2024-01-13 23:41 | Inpatient (IN) ==
[2024-01-14 00:12] LABS: Basophils # (Auto) 0.02 K/mcL (0.00-0.30); Basophils % (Auto) 0.3 % (0.0-2.0); Eosinophils # (Auto) 0.14 K/mcL (0.00-0.70); Hematocrit 37.4 % (34.1-44.9); Hemoglobin 11.8 g/dL (11.2-15.7); Lymphocytes # (Auto) 1.06 K/mcL (1.50-4.80); Lymphocytes % (Auto) 15.3 % (15.5-49.0); Mean Cell Volume 96.1 fL (80.0-100.0); Mean Corpuscular HGB Conc 31.6 g/dL (31.0-36.0); Mean Platelet Volume 10.4 fL (8.8-12.5); Monocytes # (Auto) 0.51 K/mcL (0.10-0.90); Monocytes % (Auto) 7.4 % (1.0-12.0); Neutrophils % (Auto) 74.9 % (38.0-78.0); Platelet Count 188 K/mcL (140-440); RBC 3.89 M/mcL (3.59-5.38); Red Cell Distribution Width 14.8 % (11.5-14.5); WBC 6.9 K/mcL (4.5-11.0)
[2024-01-14 00:31] LABS: ALT/SGPT < 5 U/L (<40); AST/SGOT 13 U/L (<32); Albumin 3.6 gm/dL (3.2-5.2); Albumin/Globulin Ratio 1.1 (1.0-2.3); Alkaline Phosphatase 82 U/L (39-117); Bilirubin,Total 0.9 mg/dL (0.1-1.0); Blood Urea Nitrogen 21 mg/dL (8-23); Calcium 9.1 mg/dL (8.6-10.4); Carbon Dioxide 22 mmol/L (22-30); Chloride 106 mmol/L (96-108); Globulin 3.4 gm/dL (2.2-3.7); Glomerular Filtration Rate 60; Glucose 177 mg/dL (70-105)
[2024-01-14 00:36] LABS: INR 2.7 (0.9-1.1); Prothrombin Time 30.3 sec (11.9-14.5)
[2024-01-14] MEDS: FUROSEMIDE 40 MG/4 ML VIAL IV ONE (00:53)
[2024-01-14] MEDS: ASPIRIN 81 MG TAB.CHEW CHEWED ONE (01:12)
[2024-01-14] MEDS ORDERED: ONDANSETRON 4 MG/2 ML VIAL IV PRN (07:59)
[2024-01-14] MEDS ORDERED: IPRATROPIUM/ALBUTEROL 3 ML AMPUL.NEB NEB PRN (09:16)
[2024-01-14] MEDS ORDERED: DEXTROSE 50% 50 ML VIAL IV PRN (09:16)
[2024-01-14] MEDS ORDERED: DEXTROSE 31 GM ORAL.SUSP PO PRN (09:16)
[2024-01-14] MEDS ORDERED: SENNOSIDES 1 TABLET PO PRN (09:16)
[2024-01-14] MEDS ORDERED: POLYETHYLENE GLYCOL 3350 17 GM PACKET PO PRN (09:16)
[2024-01-14] MEDS ORDERED: POTASSIUM CHLORIDE 40 MEQ in DEXTROSE 5% IN WATER 500 ML IV PRN (09:16)
[2024-01-14] MEDS ORDERED: MAGNESIUM SULFATE 2 GM/50 ML BAG IV PRN (09:16)
[2024-01-14] MEDS ORDERED: POTASSIUM CHLORIDE 20 MEQ TABLET PO PRN ×2 (09:16)
[2024-01-14 10:18] LABS: Digoxin 1.2 ng/mL
[2024-01-14] MEDS: FUROSEMIDE 40 MG/4 ML VIAL IV SCH (10:25)
[2024-01-14 11:11] LABS: INR 2.9 (0.9-1.1); Prothrombin Time 31.9 sec (11.9-14.5)
[2024-01-14] MEDS: INSULIN LISPRO 1 UNIT/0.01 ML UNIT SQ SCH (11:55)
[2024-01-14] MEDS: WARFARIN 5 MG TABLET PO ONE (14:12)
[2024-01-14] MEDS: DIGOXIN 125 MCG TABLET PO SCH (14:16)
[2024-01-14] MEDS: ACETAMINOPHEN 325 MG TABLET PO PRN (19:44)
[2024-01-14] MEDS: DOCUSATE SODIUM 100 MG CAPSULE PO SCH (21:47)
[2024-01-15 05:59] LABS: Basophils # (Auto) 0.04 K/mcL (0.00-0.30); Basophils % (Auto) 0.7 % (0.0-2.0); Eosinophils # (Auto) 0.24 K/mcL (0.00-0.70); Eosinophils % (Auto) 4.3 % (0.0-7.0); Hematocrit 34.7 % (34.1-44.9); Hemoglobin 10.8 g/dL (11.2-15.7); Lymphocytes # (Auto) 1.18 K/mcL (1.50-4.80); Lymphocytes % (Auto) 21.3 % (15.5-49.0); Mean Cell Volume 95.6 fL (80.0-100.0); Mean Corpuscular HGB Conc 31.1 g/dL (31.0-36.0); Mean Platelet Volume 10.1 fL (8.8-12.5); Monocytes # (Auto) 0.58 K/mcL (0.10-0.90); Monocytes % (Auto) 10.5 % (1.0-12.0); Neutrophils % (Auto) 62.7 % (38.0-78.0); Platelet Count 187 K/mcL (140-440); RBC 3.63 M/mcL (3.59-5.38); Red Cell Distribution Width 14.7 % (11.5-14.5); WBC 5.6 K/mcL (4.5-11.0)
[2024-01-15 06:15] LABS: ALT/SGPT < 5 U/L (<40); AST/SGOT 11 U/L (<32); Albumin 3.2 gm/dL (3.2-5.2); Albumin/Globulin Ratio 1.1 (1.0-2.3); Alkaline Phosphatase 71 U/L (39-117); Bilirubin,Direct 0.2 mg/dL (<0.3); Bilirubin,Total 0.6 mg/dL (0.1-1.0); Blood Urea Nitrogen 28 mg/dL (8-23); Calcium 8.7 mg/dL (8.6-10.4); Carbon Dioxide 31 mmol/L (22-30); Chloride 101 mmol/L (96-108); Globulin 2.9 gm/dL (2.2-3.7); Glomerular Filtration Rate 47; Glucose 101 mg/dL (70-105); Lactate Dehydrogenase 168 U/L (135-225); Phosphorous 4.3 mg/dL (2.5-4.5); Triglycerides 85 mg/dL (<150); Uric Acid 5.7 mg/dL (2.5-8.0)
[2024-01-15 07:21] LABS: INR 3.1 (0.9-1.1); Prothrombin Time 33.7 sec (11.9-14.5)
[2024-01-15] MEDS: SPIRONOLACTONE 25 MG TABLET PO SCH (08:13)
[2024-01-15] MEDS: ASPIRIN 81 MG TAB.CHEW PO SCH (08:14)
[2024-01-15] MEDS: CARVEDILOL 6.25 MG TABLET PO SCH (08:14)
[2024-01-15] MEDS: GLIMEPIRIDE 2 MG TABLET PO SCH (10:22)
[2024-01-15] MEDS: WARFARIN 1 MG TABLET PO SCH (13:55)
[2024-01-16 07:47] LABS: Blood Urea Nitrogen 36 mg/dL (8-23); Calcium 8.9 mg/dL (8.6-10.4); Carbon Dioxide 28 mmol/L (22-30); Chloride 98 mmol/L (96-108); Glomerular Filtration Rate 42; Glucose 163 mg/dL (70-105)
[2024-01-16 08:06] LABS: INR 2.2 (0.9-1.1); Prothrombin Time 25.3 sec (11.9-14.5)
[2024-01-16] MEDS ORDERED: WARFARIN 5 MG TABLET PO SCH (14:00)
== END 2024-01-16 11:44 | disposition home or self-care (01) | DRG 291 ==
LOC: ED 23:41 → ICU 01-14 11:34
PROVIDERS: ADMIT Internal Medicine; ATTEND Internal Medicine